=== PATIENT | female | born 1980 | race Caucasian/White ===

== ENCOUNTER 2020-10-10 14:09 | Outpatient (CLI) | payer BC ==
--- NOTE | 2020-10-10 14:45 | ULT ---
US Breast Limited Rt: 10/10/2020 12:00 AM CLINICAL INDICATION: Palpable breast mass 7:00 position. COMPARISON: Mammograms 10/10/2020 and 06/20/2020 TECHNIQUE: Multiplanar grayscale and color Doppler images were obtained of the breast. FINDINGS: An anechoic cyst measuring 1.7 cm in greatest dimension is seen in the 7:00 position of the right sophia ast approximately 2 cm from the nipple. This corresponds with the palpable abnormality. No suspicious shadowing or mass is seen. IMPRESSION: BI-RADS Category 2-benign findings.
--- NOTE | 2020-10-10 14:48 | MMO ---
Right Breast MAMMO Unilat Diag DDI RT+DIGNA. CLINICAL HISTORY: Patient is 40 years old and is seen for diagnostic exam and lump or thickening in the right breast. The patient has the following family history of breast cancer: mother, at age 42. The patient has no personal history of cancer. VIEWS: The views performed were: right craniocaudal; right craniocaudal with tomosynthesis; right mediolateral oblique with tomosynthesis; and right mediolateral with tomosynthesis. FILMS COMPARED: The present examination has been compared to prior imaging studies performed at [facility] on 06/20/2020, at [facility] on 10/10/2020, and at [facility] on 06/13/2019. This study has been interpreted with the assistance of computer-aided detection. MAMMOGRAM FINDINGS: The breast is heterogeneously dense, which could obscure a lesion on mammography. There is a round mass measuring 15 millimeters with circumscribed margins seen in the right breast. The mass was shown to be a cyst on ultrasound. Multiple other smaller circumscribed masses in the right breast are also seen and likely represent cysts. There are no suspicious masses, suspicious calcifications, or new areas of architectural distortion. IMPRESSION: THERE IS NO MAMMOGRAPHIC EVIDENCE OF MALIGNANCY. A ROUTINE FOLLOW-UP MAMMOGRAM IN 1 YEAR IS RECOMMENDED. THE RESULTS OF THIS EXAM WERE SENT TO THE PATIENT. ACR BI-RADS Category 2 - Benign finding MAMMOGRAPHY NOTE: 1. A negative mammogram report should not delay a biopsy if a dominant of clinically suspicious mass is present. 2. Approximately 10% to 15% of breast cancers are not detected by mammography. 3. Adenosis and dense breasts may obscure an underlying neoplasm. Reported by: ANNE SEE MD Electonically Signed: [id number]
== END 2020-10-10 14:10 | disposition home or self-care (01) ==
LOC: BICMAMMO 14:09
PROVIDERS: ATTEND Obstetrics & Gynecology
DX: N63.10 Unspecified lump in the right breast, unspecified quadrant (principal)
CPT/HCPCS: G0279